=== PATIENT | male | born 1955 | race Caucasian/White ===

== ENCOUNTER 2021-06-02 06:21 | Day surgery (SDC) | payer MEDICAID ==
[~2021-06-02] VITALS: Ht 180.3 cm; Wt 70.4 kg
[2021-06-02] MEDS ORDERED: SODIUM CHLORIDE 0.9% 1,000 ML IV ONE (06:30)
[2021-06-02 06:55] LABS: COVID AG,FIA SOURCE NASOPHARYNGEAL
[2021-06-02] MEDS ORDERED: SODIUM CHLORIDE 0.9% 1,000 ML ONE (07:17)
[2021-06-02] MEDS ORDERED: FentaNYL CITRATE PF 100 MCG/2 ML VIAL ONE (07:33)
[2021-06-02] MEDS ORDERED: MIDAZOLAM HCL 5 MG/ML VIAL ONE (07:34)
[2021-06-02] MEDS ORDERED: MethylPREDNISolone SOD SUCC 125 MG/2 ML VIAL IVP ONE (09:45)
[2021-06-02] MEDS ORDERED: MethylPREDNISolone SOD SUCC 125 MG/2 ML VIAL ONE (10:07)
[2021-06-02] MEDS ORDERED: OXYGEN THERAPY IH SCH (20:00)
== END 2021-06-02 13:00 | disposition home or self-care (01) ==
LOC: SURGERY 06:21
PROVIDERS: ATTEND Internal Medicine Critical Care Medicine
DX: R05.3 Chronic cough (principal); R06.2 Wheezing; R49.0 Dysphonia; R91.8 Other nonspecific abnormal finding of lung field; B37.0 Candidal stomatitis; Z20.822 Contact with and (suspected) exposure to COVID-19; Z79.899 Other long term (current) drug therapy; Z88.5 Allergy status to narcotic agent; Z91.018 Allergy to other foods
CPT/HCPCS: 31623; 31624; 31625; 71045; 87015; 87070; 87101; 87206; 87220; 87426; 88112; 88184; 88185; 88305; 88312; C9803; J2250; J2930; J3010; J7030